=== PATIENT | female | born 1970 | race Caucasian/White ===

== ENCOUNTER 2016-10-06 09:29 | Emergency (ER) ==
[2016-10-06 09:52] VITALS: BP 123/67
--- NOTE | 2016-10-06 10:19 | PROVIDER DOCUMENTATION ---
HPI-General Adult - General Chief Complaint: Cold Symptoms Stated Complaint: COLD SX Time Seen by Provider: 10/06/16 10:10 Source: patient Allergies/Adverse Reactions: Patient Allergies Allergy/AdvReac Type Severity Reaction Status Date / Time latex Allergy Intermediate RASH Verified 04/08/16 16:11 Sulfa (Sulfonamide Allergy Intermediate VOMITING Verified 04/08/16 16:11 Antibiotics) levofloxacin [From Levaquin] Allergy VOMITING Verified 04/08/16 16:11 sulfamethoxazole Allergy NAUSEA/VOMI Verified 04/08/16 16:11 [From Bactrim] TING trimethoprim [From Bactrim] Allergy NAUSEA/VOMI Verified 04/08/16 16:11 TING Home Medications: Alprazolam [Xanax] 1 mg PO TID 02/27/14 Aspirin 325 mg PO DAILY 02/27/14 Docusate Sodium [Colace] 100 mg PO BID 02/27/14 Escitalopram [Lexapro] 20 mg PO DAILY 02/27/14 Prazosin [Minipress] 1 tab PO DAILY 02/27/14 Ranitidine HCl [Zantac] 300 mg PO DAILY 02/27/14 Gabapentin 800 mg PO TID 03/23/14 Tizanidine HCl [Zanaflex] 2 mg PO TID 04/08/16 - History of Present Illness -Gen Adult Nature of Presenting Problems: Pt is 45 y/o F presents to the ED with cough and sore throat. Pt denies F. Pt denies N/V/D. Pt states going to PCP last week and was diagnosed with bronchitis. Location of Pain/Injury: reports: generalized Pain Radiation: reports: no radiation Quality of Pain: reports: aching Severity: reports: mild Onset/Duration: reports: 1 week ago, last week Timing: reports: still present, intermittent Context/Activities at Onset: reports: light activity Modifying Factors: improves with: nothing Associated Symptoms: reports: cough. denies: arm pain, back/neck pain, chest pain, constipation, diarrhea, dizziness, fever/chills, loss of appetite, sinus congestion/drainage, nausea, shortness of breath, vomiting, weakness Similar Symptoms Previously?: Yes Recently seen or treated by another doctor?: Yes Review of Systems - Adult - REVIEW OF SYSTEMS - ADULT Constitutional: denies: chills, fever Eyes: denies: blurred vision, double vision Ears, Nose, Mouth & Throat: reports: throat pain. denies: ear pain, nose pain Cardiovascular: denies: chest pain, heart murmur, irregular heart rate Respiratory: reports: cough. denies: shortness of breath, wheezing Gastrointestinal: denies: abdominal pain, diarrhea, nausea, vomiting Genitourinary: denies: dysuria, hematuria Musculoskeletal: denies: bone pain, joint pain, neck pain Integumentary: denies: hives, itching Neurological: denies: dizziness/vertigo, headache/migraines Psychiatric: reports: no symptoms reported Endocrine: reports: no symptoms reported Hematologic/Lymphatic: reports: no symptoms reported Allergic/Immunologic: reports: no symptoms reported All Other Systems: Reviewed and Negative Past History - Adult - PAST MEDICAL HISTORY-ADULT Review of Records: reports: Nursing Assessment Review, Medications Reviewed, Social history reviewed & non-contributory. Major Childhood Illnesses: reports: denies history Cardiovascular: reports: denies history Respiratory: reports: denies history Gastrointestinal: reports: GERD Obstetrical/Gynecological: reports: denies history Genitourinary: reports: denies history Musculoskeletal: reports: chronic pain, other (scleroderma) Neurological: reports: other (Reynaud's) Psychiatric: reports: anxiety Endocrine/Immune: reports: other (scleraderma) Other Conditions: reports: denies history Additional History: Scleraderma - PRIOR SURGERIES/PROCEDURES Surgical/Procedure History: reports: hysterectomy, other (LEEP procedure) - PRIOR HOSPITALIZATIONS Prior Hospitalizations: reports: none - IMMUNIZATION STATUS Childhood Immunizations: See Nurse Assessment Flu Vaccine: See Nurse Assessment - FAMILY HISTORY Family History: CAD over 55 yo, HTN - SOCIAL HISTORY Smoking: cigarettes, greater than 1 pack/day Provider spent 3-5 mins advising pt. on dangers of tobacco.: Discussed manners to quit use, and f/u contacts for add'l counseling. Substance Use: denies Living Situation: family Physical Exam-General - PHYSICAL EXAM-ADULT Initial Vital Signs Reviewed: Yes - CONSTITUTIONAL General Appearance: appears well, alert, no apparent distress - EYES Eyes: PERRL/EOMI, pink conjunctivae - HEAD, EARS, NOSE, MOUTH & THROAT HENMT: normocephalic/atraumatic, moist mucous membranes, normal ENT inspection - NECK Neck: non-tender, full range of motion, supple, normal inspection - RESPIRATORY Respiratory: chest non-tender, lungs clear, normal breath sounds - CARDIOVASCULAR Cardiovascular: normal peripheral pulses, regular rate, rhythm, no edema - GASTROINTESTINAL (ABDOMEN) Abdominal Exam: normal bowel sounds, non tender, soft - LYMPHATIC Lymphatic: no adenopathy - MUSCULOSKELETAL Back Exam: normal inspection, no CVA tenderness, no vertebral tenderness Extremity: normal range of motion, non-tender, normal gait - SKIN Integumentary: normal color, normal turgor, warm/dry - NEUROLOGIC Neurologic: elevator service mechanic II-XII nml as tested, grossly normal, no motor/sensory deficits - PSYCHIATRIC Psych/Mental Status: normal mood/affect, normal thought content, normal thought process, oriented x 3 Progress - PLAN OF CARE/RESULTS Progress/Plan/Lab Results: Laboratory Tests 10/06/16 10:00 Group A Strep Rapid NEGATIVE Orders Category Date Time Status DIRECT STREP PL Stat Lab 10/06/16 10:00 Completed Vital Signs - 24 hr 10/06/16 09:50 Temperature 98.6 F Pulse Rate 88 Respiratory 18 Rate Blood Pressure 123/67 O2 Sat by Pulse 99 Oximetry Departure - Departure Time of Disposition Order: 10:19 DIAGNOSIS: Cold Disposition: HOME 01 Certified Medical Emergency: Emergent Condition: Stable Additional Instructions: ED Follow Up Instructions: You have been treated by a care provider in the Emergency Department. These instructions are being provided to you so you can have an understanding of how to care for yourself upon discharge. Upon discharge from the Emergency Department, you are responsible for making arrangements for follow-up care by a physician of your choice. Take all prescribed medications as directed. Return to the Emergency Department immediately for any new or worsening symptoms. You may call the Physician Referral phone number at [phone] to obtain a list of Physicians who are taking new patients. Prescriptions: Guaifenesin/Codeine [Robitussin-AC] 10 ml PO Q4H PRN PRN #6 oz PRN Reason: Cough Attestation - Scribe Verification/Attestation Scribe:: Lian Hou Acting as Scribe for:: Damien Jason Scribe documention review:: This chart was documented by a scribe and accurately reflects the service the provider performed and the decisions made by the provider.
== END 2016-10-06 10:36 | disposition home or self-care (01) ==
LOC: P.ED 09:29
DX: J00 Acute nasopharyngitis [common cold] (principal); R05 Cough; J02.9 Acute pharyngitis, unspecified; K21.9 Gastro-esophageal reflux disease without esophagitis; M34.9 Systemic sclerosis, unspecified; G89.29 Other chronic pain; I73.00 Raynaud's syndrome without gangrene; F41.9 Anxiety disorder, unspecified; F17.210 Nicotine dependence, cigarettes, uncomplicated; Z71.6 Tobacco abuse counseling; Z79.899 Other long term (current) drug therapy; Z79.82 Long term (current) use of aspirin; Z82.49 Family history of ischemic heart disease and other diseases of the circulatory system
CPT/HCPCS: 87081; 87430; 99283

== ENCOUNTER 2019-01-28 20:49 | Inpatient (IN) ==
[2019-01-28] MEDS ORDERED: NS 1,000 ML IV ONE ×2 (21:37→23:25)
[2019-01-28] MEDS ORDERED: MYCOSTATIN SUSP PO ONE (21:41)
[2019-01-28] MEDS ORDERED: MBX SOLUTION MT ONE (21:41)
[2019-01-28 21:45] LABS: BASO# 0.08 X1000 (0.0-0.2); EOS# 0.36 X1000 (0.0-0.7); EOS% 4.5 % (0.0-10.0); HEMATOCRIT 35.7 % (37.0-47.0); HEMOGLOBIN 11.9 g/dL (12.0-16.0); IMM GRAN# 0.02 X1000 (0.0-0.04); IMM GRAN% 0.2 % (0.0-0.5); LYMPH# 2.49 X1000 (1.2-3.4); LYMPH% 30.9 % (20.5-51.1); MCH 32.4 PG (27-31); MCHC 33.3 g/dL (33-37); MCV 97.3 FL (81-99); MONO# 0.71 X1000 (0.11-0.59); MONO% 8.8 % (1.7-9.3); MPV 10.9 FL (7.4-10.4); NEUT# 4.41 X1000 (1.4-6.5); NEUT% 54.6 % (42.2-75.2); PLT 217 X1000 (130-400); RBC 3.67 XMIL (4.2-5.4); RDW 13.2 % (11.5-14.5); WBC 8.07 X1000 (4.8-10.8)
[2019-01-28 22:11] LABS: INFLUENZA A NEGATIVE (NEGATIVE); INFLUENZA B NEGATIVE (NEGATIVE)
[2019-01-28 22:16] LABS: AGAP 10; ALBUMIN 3.7 g/dL (3.5-5.0); ALKALINE PHOSPHATASE 98 U/L (32-104); BUN 11 mg/dL (8-22); CALCIUM 8.7 mg/dL (8.8-10.2); CHLORIDE 103 mmol/L (98-107); COSMO 283; CREATININE 0.6 mg/dL (0.5-0.9); ESTIMATED GFR > 60; GLUCOSE 116 mg/dL (70-104); GOT 16 U/L (10-30); GPT 6 U/L (10-36); LIPASE 39 U/L (13-60); MAGNESIUM 1.8 mg/dL (1.5-2.7); POTASSIUM 3.8 mmol/L (3.5-5.1); SODIUM 142 mmol/L (136-145); TCO2 29 mmol/L (25-35); TOTAL BILIRUBIN < 0.15 mg/dL (0.20-1.00); TOTAL PROTEIN 7.3 g/dL (6.3-8.3)
[2019-01-28 22:25] LABS: BILIRUBIN URINE NEGATIVE (NEGATIVE); BLOOD URINE NEGATIVE (NEGATIVE); CLARITY CLEAR (CLEAR); COLOR YELLOW; GLUCOSE URINE NEGATIVE (NEGATIVE); KETONE URINE NEGATIVE (NEGATIVE); LEUKOCYTES URINE NEGATIVE (NEGATIVE); NITRITE URINE NEGATIVE (NEGATIVE); PROTEIN URINE TRACE mg/dL (NEGATIVE); SP GRAVITY URINE 1.025; UROBILINOGEN URINE NORMAL
[2019-01-28 22:29] LABS: URINE SOURCE CLEAN CATCH
[2019-01-28 22:30] LABS: URINE BACTERIA NEGATIVE /HFP; URINE CAST NONE SEEN /LPF; URINE CRYSTAL NONE SEEN /HPF; URINE EPITHELIAL CELLS <10 /HPF (<10); URINE RBC <10 /HPF (<10); URINE WBC <10 /HPF (<10); URINE YEAST NONE SEEN /HPF
--- NOTE | 2019-01-28 22:30 | Diag Imaging Result Doc PS360 ---
EXAM: CHEST-2 VIEWS HISTORY: pna TECHNIQUE: Chest two views COMPARISON: 06/05/2018 FINDINGS: The lungs are well expanded. The heart is not enlarged. The vessels are not distended. There are increased interstitial markings in the left lung base. There is also a granuloma in the left base. No pleural effusions. IMPRESSION: Left lower lobe infiltrates. Follow-up films recommended. Electronically signed by Agustin Miramontes 01/28/2019 10:28 PM
[2019-01-28 23:04] LABS: OCCULT BLOOD 1 NEGATIVE (NEGATIVE)
--- NOTE | 2019-01-28 23:28 | PROVIDER DOCUMENTATION ---
This chart was entered by Meghna Slater Scribe, acting as scribe for Mariaelena Schmid MD. HPI-General Adult - General Chief Complaint: Dizziness Stated Complaint: MOUTH PAIN, DIZZY Time Seen by Provider: 01/28/19 21:13 Source: patient Allergies/Adverse Reactions: Patient Allergies Allergy/AdvReac Type Severity Reaction Status Date / Time latex Allergy Intermediate RASH Verified 03/24/17 12:34 Sulfa (Sulfonamide Allergy Intermediate VOMITING Verified 03/24/17 12:34 Antibiotics) levofloxacin [From Levaquin] Allergy VOMITING Verified 03/24/17 12:34 sulfamethoxazole Allergy NAUSEA/VOMI Verified 03/24/17 12:34 [From Bactrim] TING trimethoprim [From Bactrim] Allergy NAUSEA/VOMI Verified 03/24/17 12:34 TING Home Medications: Home Medication List Medication Instructions Recorded Confirmed Last Taken Type Escitalopram [Lexapro] 20 mg PO DAILY 02/27/14 06/02/17 06/01/17 History Prazosin [Minipress] 1 tab PO DAILY 02/27/14 06/02/17 06/02/17 History Gabapentin 800 mg PO TID 03/23/14 06/02/17 06/02/17 History Alprazolam [Xanax] 1 mg PO QHS 11/01/16 06/02/17 06/01/17 History Oxycodone HCl/Acetaminophen 10 mg PO 4XDAY 11/01/16 06/02/17 06/02/17 History [Percocet 10-325 mg Tablet] Prednisone [Deltasone] 5 mg PO DAILY 02/21/17 06/02/17 06/02/17 History Ticagrelor [Brilinta] 1 tab PO BID 02/21/17 06/02/17 06/02/17 History Albuterol Sulfate [Albuterol 8.5 gm IH Q4-6H PRN PRN #1 06/02/17 Unknown Rx Sulfate Hfa] hfa.[email or web address].[email or web address] Alprazolam 0.5 mg PO DAILY 06/02/17 06/02/17 06/02/17 History Aspirin [Aspir-Low] 81 mg PO DAILY 06/02/17 06/02/17 06/02/17 History Azithromycin [Zithromax Z-Rodrigo] 250 mg PO DIRECTED #1 pkg 06/02/17 Unknown Rx Baclofen 20 mg PO TID 06/02/17 06/02/17 06/02/17 History Guaifenesin/D-Methorphan Hb/PE 1 each PO Q4-6H PRN PRN #20 tablet 06/02/17 Unknown Rx [Deconex Dmx Tablet] Oxycodone E.r. [Oxycontin] 40 mg PO Q12HR 06/02/17 06/02/17 06/02/17 History Pantoprazole [Protonix] 40 mg PO DAILY@0700 06/02/17 06/02/17 06/02/17 History Lansoprazole [Prevacid] 30 mg PO DAILY #30 capsule. 10/02/17 Unknown Rx Benzocaine/Menth/Cetylpyrd Olman 16 each .SEE ORDER PRN PRN #1 box 09/15/18 Unknown Rx [Cepacol Sore Throat Lozenge] Butalbital/APAP/Caffeine [Fioricet] 1 each PO Q4H PRN PRN #20 tablet 09/15/18 Unknown Rx - History of Present Illness -Gen Adult Nature of Presenting Problems: 48 yof c/o fever chills, sweating, sob, neck pain, nausea and diarrhea since sunday. pt went to today for dizziness and hypotension and was dx w/thrush. pt has diflucan called in but hasn't picked up. pt told to come to er if sym worsen. pt also c/o frequent urination and incontinence recently. pt denies cp, headache and hematuria. pt is a smoker, 1ppd Review of Systems - Adult - REVIEW OF SYSTEMS - ADULT Constitutional: reports: see HPI, chills, fever, night sweats. denies: fatique, weight gain, weight loss Eyes: reports: no symptoms reported. denies: blurred vision, double vision, eye pain Ears, Nose, Mouth & Throat: reports: no symptoms reported Cardiovascular: reports: see HPI, other (hypotensive, 93/54 2109). denies: chest pain, heart murmur, irregular heart rate Respiratory: reports: see HPI, shortness of breath. denies: cough, hemoptysis, pleurisy, wheezing Gastrointestinal: reports: see HPI, diarrhea, nausea. denies: abdominal pain, r ectal bleeding, vomiting Genitourinary: reports: see HPI, frequency, incontinence. denies: discharge, frequent UTI's, urinary retention, urgency Musculoskeletal: reports: see HPI, neck pain. denies: back pain, joint pain Integumentary: reports: no symptoms reported Neurological: reports: see HPI, dizziness/vertigo. denies: headache/migraines, loss of balance, seizure, slurred speech, tremors Psychiatric: reports: no symptoms reported Endocrine: reports: see HPI, polyuria. denies: goiter, cold intolerance, heat intolerance Hematologic/Lymphatic: reports: no symptoms reported Allergic/Immunologic: reports: no symptoms reported All Other Systems: Reviewed and Negative Past History - Adult - PAST MEDICAL HISTORY-ADULT Review of Records: reports: Old Records Reviewed, Nursing Assessment Review, Medications Reviewed, Social history reviewed & non-contributory. Major Childhood Illnesses: reports: denies history Cardiovascular: reports: HTN (hypotensive) Respiratory: reports: COPD Gastrointestinal: reports: GERD Obstetrical/Gynecological: reports: denies history Genitourinary: reports: denies history Musculoskeletal: reports: chronic pain, other (scleroderma) Neurological: reports: other (Reynaud's) Psychiatric: reports: anxiety Endocrine/Immune: reports: other (scleraderma) Other Conditions: reports: denies history Additional History: Scleraderma - PRIOR SURGERIES/PROCEDURES Surgical/Procedure History: reports: hysterectomy, BTL, other (LEEP procedure) - PRIOR HOSPITALIZATIONS Prior Hospitalizations: reports: none - IMMUNIZATION STATUS Childhood Immunizations: See Nurse Assessment Flu Vaccine: See Nurse Assessment - FAMILY HISTORY Family History: CAD over 55 yo, HTN - SOCIAL HISTORY Smoking: cigarettes, greater than 1 pack/day Provider spent 3-5 mins advising pt. on dangers of tobacco.: Discussed manners to quit use, and f/u contacts for add'l counseling. Substance Use: none/never Physical Exam-General - PHYSICAL EXAM-ADULT Initial Vital Signs Reviewed: Yes - CONSTITUTIONAL General Appearance: appears well, alert, no apparent distress, thin. negative: obese, lethargic, slow to respond, obtunded - EYES Eyes: PERRL/EOMI, pink conjunctivae - HEAD, EARS, NOSE, MOUTH & THROAT HENMT: normocephalic/atraumatic, moist mucous membranes, normal ENT inspection - NECK Neck: non-tender, full range of motion, supple, normal inspection - RESPIRATORY Respiratory: chest non-tender, lungs clear, normal breath sounds - CARDIOVASCULAR Cardiovascular: normal peripheral pulses, regular rate, rhythm - GASTROINTESTINAL (ABDOMEN) Abdominal Exam: normal bowel sounds, non tender, soft - LYMPHATIC Lymphatic: no adenopathy - MUSCULOSKELETAL Back Exam: normal inspection, no CVA tenderness, no vertebral tenderness Extremity: normal range of motion, non-tender, normal inspection, deformity (thickened fingernails, nodules on bilat fingers). negative: erythema, inflammation, slow capillary refill, tenderness Peripheral Pulses: radial (R): 2+, radial (L): 2+ - SKIN Integumentary: normal color, normal turgor, warm/dry - NEUROLOGIC Neurologic: grossly normal, no motor/sensory deficits - PSYCHIATRIC Psych/Mental Status: normal mood/affect, normal thought content, normal thought process, oriented x 3 Progress - PLAN OF CARE/RESULTS Progress/Plan/Lab Results: Vital Signs - 8 hr 01/28/19 21:09 01/28/19 21:14 Temperature 98.4 F Pulse Rate 75 Pulse Rate [Sitting] 71 Pulse Rate [Standing] 84 Pulse Rate [Supine] 70 Respiratory Rate 20 Blood Pressure 93/54 Blood Pressure [Sitting] 98/59 Blood Pressure [Standing] 82/48 Blood Pressure [Supine] 98/57 O2 Sat by Pulse Oximetry 96 Orders Category Date Time Status ED: Orthostatic Vital Signs (E DIRECTED Care 01/28/19 21:14 Active cxr [CHEST-2 VIEWS] [RAD] Stat Exams 01/28/19 21:40 Ordered CBC WITH DIFF [HEME] Stat Lab 01/28/19 21:31 Received COMPREHENSIVE METABOLIC PANEL [CHEM] Stat Lab 01/28/19 21:[address] Stat Lab 01/28/19 21:40 Uncollected LIPASE [CHEM] Stat Lab 01/28/19 21:39 Ordered MAGNESIUM [CHEM] Stat Lab 01/28/19 21:39 Ordered PHOSPHORUS [CHEM] Stat Lab 01/28/19 21:[address] W/POSS RFLX CULT [URINALYSIS] Stat Lab 01/28/19 21:41 Uncollected 0.9% Sodium Chloride Inj [Ns] 1,000 ml Med 01/28/19 21:37 Active IV 999 mls/hr Diphenhyramine/Al&mg Oh/Lido [Mbx Solution] Med 01/28/19 21:41 Discontinued 5 ml MT NOW ONE Nystatin Susp [Mycostatin Susp] Med 01/28/19 21:41 Once 5 ml PO NOW ONE Result Diagrams: 01/28/19 21:31 01/28/19 21:31 Departure - Departure Date of Disposition Decision: 01/28/19 Time of Disposition Decision: 23:27 DIAGNOSIS: Hypotension Disposition: ADMITTED INPATIENT 09 Certified Medical Emergency: Emergent Condition: Stable Referrals and Follow-Ups: Mary Odom MD [Primary Care Provider] - - Critical Care Note This patient required my direct & personal management of CC.: No Attestation - Physician/ KELLI Attestation Patient care was provided by Advanced Practice Provider:: No The physician spent face to face time with patient:: Yes Advanced Practice Provider documentation review:: Supervising physician onsite and consulted in the evaluation and care of this patient. The physician did have a face to face encounter with the patient. This chart was documented by the indicated scribe, (Meghna Slater Scribe) and accurately reflects the services I performed and decisions made by me, Mariaelena Schmid MD, as attested by the provider's signature.
[2019-01-29] MEDS ORDERED: ROCEPHIN 1 GM in NS 50 ML IV ONE (00:03)
[2019-01-29] MEDS ORDERED: PRILOSEC PO SCH (07:00)
[2019-01-29 07:41] VITALS: BP 135/69
[2019-01-29] MEDS ORDERED: DUONEB (A & A) INH PRN (07:48)
[2019-01-29] MEDS ORDERED: ZITHROMAX 500 MG/NS 500 MG/250 ML IVPB IV SCH (08:00)
[2019-01-29 08:15] LABS: BASO# 0.06 X1000 (0.0-0.2); BASO% 1.2 % (0.0-0.8); HEMATOCRIT 35.2 % (37.0-47.0); HEMOGLOBIN 11.6 g/dL (12.0-16.0); IMM GRAN# 0.01 X1000 (0.0-0.04); IMM GRAN% 0.2 % (0.0-0.5); LYMPH# 1.34 X1000 (1.2-3.4); LYMPH% 26.9 % (20.5-51.1); MCH 31.7 PG (27-31); MCV 96.2 FL (81-99); MONO# 0.48 X1000 (0.11-0.59); MONO% 9.6 % (1.7-9.3); MPV 11.5 FL (7.4-10.4); NEUT% 56.1 % (42.2-75.2); PLT 196 X1000 (130-400); RBC 3.66 XMIL (4.2-5.4); RDW 12.9 % (11.5-14.5); WBC 4.99 X1000 (4.8-10.8)
[2019-01-29 08:28] LABS: IRON SATURATION 16 %; TIBC 252 ug/dL; TOTAL IRON 40 ug/dL (49-151); UNBOUND IRON 212 ug/dL (112-346)
[2019-01-29] MEDS ORDERED: SINGULAIR PO SCH (09:00)
[2019-01-29] MEDS ORDERED: LIORESAL PO SCH (09:00)
[2019-01-29] MEDS ORDERED: NEURONTIN PO SCH (09:00)
[2019-01-29] MEDS ORDERED: ASPIRIN EC PO SCH (09:00)
[2019-01-29] MEDS ORDERED: LEXAPRO PO SCH (09:00)
[2019-01-29] MEDS ORDERED: PERCOCET-10 PO SCH (09:00)
[2019-01-29] MEDS ORDERED: DUONEB (A & A) INH SCH (11:30)
--- NOTE | 2019-01-29 11:48 | HISTORY AND PHYSICAL ---
PRIMARY CARE PHYSICIAN: Mary Odom MD. CHIEF COMPLAINT: Weakness and hypotension. HISTORY OF PRESENT ILLNESS: Mrs. Mora is a 48-year-old female with a history of scleroderma, Raynaud's syndrome, brain aneurysm status post clipping, chronic pain on heavy opiate prescriptions, who presents with weakness and dizziness and hypotension. Symptoms started 2 days ago. She was complaining of oral thrush and went to her PCP with complaints of throat pain. She was also having fever, chills, nausea, and diarrhea. In her PCP's office, she was noted to be hypotensive and it was recommended that she take Diflucan and if there was any worsening in her symptoms that she come to the ER. She continued to have dizziness and weakness and came to our ER last night. Here in the ER, she had labs done, which did not show anything acute, and the lowest reading blood pressure that we have is 93/54. She was started on IV fluids. Chest x-ray did show left lower lobe pneumonia and she was given antibiotics. She was admitted for observation status for her blood pressure and with IV fluids her blood pressure increased and improved nicely, this morning her blood pressure is 135/69. She has no complaints at this time with the exception of wanting her pain medication for her chronic pain. She denies any chest pain or abdominal pain. No vomiting. She is afebrile. At this point, her blood pressure has normalized, and she is stable for discharge home. We will continue the antibiotics for her pneumonia and have her follow up with her PCP. PAST MEDICAL HISTORY: 1. Raynaud's syndrome. 2. Scleroderma. 3. Nicotine dependence. 4. Chronic pain on heavy opiate narcotics. 5. History of brain aneurysm status post clipping. 6. COPD. PAST SURGICAL HISTORY: Hysterectomy, tubal ligation, fundoplication, oral surgery, and aneurysmal clipping. SOCIAL HISTORY: She denies illicit drug use. Smokes a pack a day. Denies alcohol use. She lives alone. Her mother is at the bedside with her. FAMILY HISTORY: Noncontributory. REVIEW OF SYSTEMS: A 14-point review of systems obtained and found to be negative with the exception of the HPI. HOME MEDICATIONS: Xanax 0.25 mg p.o. daily, aspirin 81 mg daily, Baclofen 20 mg p.o. t.i.d., Benadryl 25 mg p.o. b.i.d., Tessalon Perles 100 mg p.o. t.i.d., Biotin 10,000 mcg daily, Claritin 10 mg daily, Colace 200 mg p.o. at bedtime, Neurontin 800 mg p.o. t.i.d., Lexapro 20 mg daily, mirtazapine 15 mg p.o. at bedtime, OxyContin 60 mg p.o. b.i.d., oxycodone 10 mg p.o. 4 times a day, Prazosin 1 mg p.o. daily, Prilosec 20 mg daily, Singulair 10 mg daily, trazodone 100 mg p.o. at bedtime, Xanax 0.75 mg p.o. at bedtime, Zanaflex 4 mg p.o. b.i.d. ALLERGIES: Latex, sulfa, Levaquin, Bactrim. PHYSICAL EXAMINATION: VITAL SIGNS: Blood pressure is 135/69, heart rate 56, respiratory rate 18, O2 saturation 100% on room air, temperature is 98.3. GENERAL: This is a chronically ill, frail-appearing 48-year-old female lying in the hospital bed in no acute distress. NEUROLOGICAL: Awake, alert, and oriented. Follows commands. No focal deficits. HEENT: Head is atraumatic and normocephalic. Her pupils are equal, round, and reactive to light. Oral mucosa is moist. NECK: Trachea is midline. No JVD. CHEST: Diminished at the bases, essentially clear to auscultation bilaterally. CARDIOVASCULAR: Regular rate and rhythm. S1 and S2 is noted. No murmurs. GASTROINTESTINAL: Soft, nondistended, nontender. Bowel sounds are positive. EXTREMITIES: No edema, clubbing, or cyanosis. Pulses 1+ bilaterally. DIAGNOSTIC DATA: Chest x-ray shows left lower lobe pneumonia. WBC 4.99, hemoglobin 11.6, hematocrit 35.2, platelet count 196. Sodium 142, potassium 3.8, chloride 103, CO2 29, anion gap 10, BUN 11, creatinine 0.6, glucose 116, calcium 8.7, magnesium 1.8, ALT 6. UA is negative. Occult blood is negative. Flu screen is negative. ASSESSMENT AND PLAN: 1. Transient hypotension: Unclear as to the etiology, likely medication-induced given her opiates, possibly dehydration, however, this has normalized now. No white count, fever, or tachycardia noted. 2. Community-acquired pneumonia. We have prescribed azithromycin and Omnicef to be taken outpatient and to follow up with her PCP. 3. Scleroderma, Raynaud's syndrome, chronic pain: Will continue her home medications. 4. Nicotine dependence. We have advised the patient to quit smoking. Nicotine patch has been prescribed. 5. Mild anemia. Iron studies have been ordered. 6. Chronic obstructive pulmonary disease: No exacerbation noted. 7. History of brain aneurysm status post clipping: The patient denies ever having had a stroke. She has no headache or visual symptoms at this time. Overall stable. 8. Disposition. The patient is discharged home to self-care. She will follow up with her PCP within a week or sooner if needed. She is also prescribed Diflucan for oral thrush by her PCP, this is per patient report, we will have her continue that and antibiotics. She is discharged home. Vitals are stable. Dictated by TALIA Lyn for Mitul Oscar MD cc: TALIA Lyn MD Angelia D. Elliott, MD
[2019-01-29 16:51] LABS: FERRITIN 32 ng/mL (13-150)
[2019-01-29] MEDS ORDERED: REMERON PO SCH (21:00)
[2019-01-29] MEDS ORDERED: COLACE PO SCH (21:00)
[2019-01-29] MEDS ORDERED: DESYREL PO SCH (21:00)
--- NOTE | 2019-01-29 23:57 | HISTORY AND PHYSICAL ---
ADDENDUM: Patient seen and examined by myself. Full note dictated and discussed with nurse practitioner. Patient is a 48-year-old female who notes that she has been having some dizziness, cough, congestion, shortness of breath, neck pain. She had recently seen her physician for dizziness and hypertension. We will admit her to the hospital for observation and we will follow. cc: Mitul Oscar MD
[2019-01-30] MEDS ORDERED: ROCEPHIN 1 GM in NS 50 ML IV SCH (08:00)
--- NOTE | 2019-01-30 15:25 | DISCHARGE SUMMARY ---
ADMISSION DATE: 01/28/2019 DISCHARGE DATE: 01/29/2019 DISCHARGE DIAGNOSES: 1. Hypertension. Blood pressure is 80s to 90s systolic on admit, 132 systolic on discharge. 2. Volume depletion. 3. Nausea and vomiting, resolved. 4. Chronic tobacco abuse. Discussed with patient the perils of smoking. 5. Dizziness, vertigo, improved. 6. Chronic pain. 7. Others. CONSULTATIONS: None. PROCEDURES: None. BRIEF HOSPITAL COURSE: Patient is a 48-year-old female who presented to the hospital, was treated in the usual fashion. Her blood pressures actually were low on initial admission. She was given IV fluids. Blood pressures improved. She did have some nausea and decreased oral intake. Of note, patient was quite irritated in the hospital that we forced her to not take her chronic high- dose pain medication. The patient still seemed quite recalcitrant to the notion that blood pressures were low in the 80s and 90s systolic and blood and pain medications lower blood pressure and therefore, would have been too dangerous to give her pain medications until her blood pressures improved. Did discuss with patient the perils of taking such high-dose medications and reasons to begin weaning. Discussed the importance of stopping smoking as well. DISPOSITION: The patient will be discharged home. No changes were made in her home medications. I did, however, discuss the reasons to stop smoking as well as the reasons to wean down her pain medications. cc: Mitul Oscar MD
== END 2019-01-29 09:54 | disposition home or self-care (01) | DRG 314 ==
LOC: P.ED 20:49 → P.MEDSURG 23:43
PROVIDERS: ATTEND Family Medicine
CPT/HCPCS: 71020; 71046; 80053; 81001; 82270; 82533; 82607; 82728; 82746; 83540; 83550; 83690; 83735; 84100; 85025; 87040; 87275; 87276; 87804; 99285; A9270; J0696; J7030